=== PATIENT | female | born 1935 | race Caucasian/White ===

== ENCOUNTER 2019-04-25 13:42 | Emergency (ER) | payer OTHER ==
[~2019-04-25] VITALS: Ht 170.2 cm; Wt 80.0 kg
[~2019-04-25 13:42] MED LIST: CYCL10TA7 PO; HYDR-4011 PO; NAPR-985 PO
[2019-04-25 13:55] VITALS: BP 163/92; PULSE 91; RESP 20; Ht 170.2 cm; Wt 80.0 kg
[2019-04-25] MEDS ORDERED: KETOROLAC 30 MG INJ IM STA (16:13)
[2019-04-25] MEDS ORDERED: DEXAMETHASONE 10 MG/ML 1 ML INJ IM ONE (16:30)
== END 2019-04-25 16:56 | disposition home or self-care (01) ==
LOC: FTE 13:42
DX: S32.040A Wedge compression fracture of fourth lumbar vertebra, initial encounter for closed fracture (principal); I25.2 Old myocardial infarction; R94.02 Abnormal brain scan; W06.XXXA Fall from bed, initial encounter; Y92.9 Unspecified place or not applicable
CPT/HCPCS: 70450; 72131; 96372; 99285; J1100; J1885